=== PATIENT | female | born 1935 | race Caucasian/White ===

== ENCOUNTER 2016-06-26 10:23 | Emergency (ER) | payer MEDICARE ==
--- NOTE | 2016-06-26 13:08 | RAD ---
INDICATION: Leg weakness, CVA. COMPARISON: There are no prior studies available for comparison. TECHNIQUE: Contiguous axial sections of the brain were obtained from the skull base to the vertex without contrast. FINDINGS: The ventricles, cisterns and sulci are prominent consistent with atrophy. There is more focal severe atrophy of the cerebellum and brainstem. There are small areas of decreased attenuation present in the subcortical and periventricular white matter consistent with mild chronic small vessel ischemic changes. No other focal abnormality or mass effect is seen. There is no evidence for hemorrhage. No significant focal osseous abnormality is seen. The visualized portion of the paranasal sinuses and mastoid air cells appear clear. IMPRESSION: 1. NO EVIDENCE FOR GROSS ACUTE INFARCT, MASS EFFECT OR HEMORRHAGE. 2. 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
[2016-06-26 13:12] LABS: Hematocrit 37 % (35-47); Hemoglobin 12.6 g/dl (12.0-16.0); Mean Corpuscular HGB Conc 34 g/dl (31-36); Mean Corpuscular Hemoglobin 31 pg (27-31); Mean Corpuscular Volume 92 fL (80-97); Mean Platelet Volume 7 um3 (7.4-10.4); Red Blood Count 4.05 10^6/ul (4.0-5.4); Red Cell Distribution Width 13 % (10.5-15); White Blood Count 7.7 10^3/ul (3.5-10.8)
--- NOTE | 2016-06-26 13:20 | RAD ---
Indication: Legs feel heavy and weak today. Comparison: No relevant prior exams available on the [facility] PACS for comparison. Technique: Noncontrast CT thoracic spine. Multiplanar reformation. Report: Tortuous descending thoracic aorta with moderate calcific plaque. Mild subsegmental atelectasis at the partially visualized lungs. Negative for pleural effusions. Negative for thoracic vertebral body or posterior element fracture or suspicious focal osseous lesion at any level. Negative for spondylolisthesis at any level. Multilevel mild degenerative spondylosis with associated osteophytosis and mild reactive endplate change. No suggestion of acquired central canal or foraminal stenosis at any level. Negative for paravertebral hematoma. IMPRESSION: 1. No evidence for thoracic spine fracture or malalignment. 2. No CT evidence for acquired spinal stenosis of the thoracic spine.
[2016-06-26 13:32] LABS: Albumin 4.1 g/dL (3.2-5.2); BUN/Creatinine Ratio 13.8 (8-20); C Reactive Protein 20.4 mg/L (< 5.00); Calcium 9.2 mg/dL (8.6-10.3); EGFR African American 73.7 (>60); EGFR Non-African American 57.3 (>60); Globulin 3.2 g/dL (2-4); Total Bilirubin 0.5 mg/dL (0.2-1.0); Total Protein 7.3 g/dL (6.4-8.9)
--- NOTE | 2016-06-26 13:37 | RAD ---
INDICATION: Leg weakness COMPARISON: Lumbar spine March 31, 2014 TECHNIQUE: Noncontrast axial source images was performed from the thoracolumbar junction to the sacrum. Coronal and and sagittal reformatted images were generated. There is believed to be lumbarization of S1 and for the purposes of this examination the lowest full disc space will be labeled as S1-S2. FINDINGS: Vertebrae: There is no fracture or acute focal bony lesion. There is believed to be a transitional vertebrae with lumbarization at S1. There is spurring of the mid and upper lumbar spine. The superior endplate compression deformity of L2. There is prominent facet arthropathy at L5-S1 with a presumed healed L5 spondylolysis. Alignment: Grade 1 anterolisthesis L5-S1. Central Canal: There are no significant CT abnormalities of the central canal or foramina. MR imaging is a more sensitive method to evaluate the canal and foramina. Intervertebral disc spaces: Minor narrowing L5-S1 The heights of the remaining disc spaces are maintained. There is vacuum disc phenomena at L1-L2 and L2-L3 Soft tissues: The paravertebral soft tissues are normal. Other: None IMPRESSION: MULTILEVEL DEGENERATIVE CHANGES DESCRIBED. NO ACUTE BONY FINDINGS.
[2016-06-26 14:29] VITALS: BP 124/72
--- NOTE | 2016-06-26 18:37 | ED ---
Obie Frias Benjamin, scribed for Samm Wilson MD on 06/26/16 at 1233 . Lower Extremity - HPI Summary HPI Summary: 80yo female who c/o bilateral leg weakness since this morning. Pt states my legs feel like jelly, describing legs feeling weak and heavy from knee down. Pt denies any pain in legs, back, or hips. Pt denies any symptoms besides leg weakness. Pt is diabetic. 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 - History of Current Complaint Chief Complaint: EDExtremityLower Stated Complaint: WEAKNESS Time Seen by Provider: 06/26/16 12:13 Hx Obtained From: Patient, Family/Track Greaser Onset/Duration: Still Present - since this morning Severity Initially: Mild Severity Currently: Mild Pain Intensity: 0 Pain Scale Used: 0-10 Numeric Timing: Constant Associated Signs And Symptoms: Positive: Weakness - Allergies/Home Medications Allergies/Adverse Reactions: Allergies Allergy/AdvReac Type Severity Reaction Status Date / Time No Known Allergies Allergy Verified 03/31/14 15:17 PMH/Surg Hx/FS Hx/Imm Hx Endocrine/Hematology History: Reports: Hx Diabetes Denies: Hx Thyroid Disease Cardiovascular History: Reports: Hx Hypertension Respiratory History: Denies: Hx Asthma, Hx Chronic Obstructive Pulmonary Disease (COPD) GI History: Denies: Hx Ulcer Infectious Disease History: Denies: Hx Clostridium Difficile, Hx Hepatitis, Hx Human Immunodeficiency Virus (HIV), Hx of Known/Suspected MRSA, Hx Shingles, Hx Tuberculosis, Hx Known/ Suspected VRE, Hx Known/Suspected VRSA, History Other Infectious Disease, Traveled Outside the [place] in Last 30 Days - Family History Known Family History: Negative: Cardiac Disease, Hypertension - Social History Occupation: Disabled Lives: At [facility] [employer] Alcohol Use: Occasionally Substance Use Type: Reports: None Smoking Status (MU): Never Smoked Tobacco Review of Systems Constitutional: Negative Eyes: Negative ENT: Negative Cardiovascular: Negative Respiratory: Negative Gastrointestinal: Negative Genitourinary: Negative Musculoskeletal: Negative Positive: Rash Positive: Weakness - bilateral leg weakness Psychological: Normal All Other Systems Reviewed And Are Negative: Yes Physical Exam - Summary Physical Exam Summary: The patient is well-nourished in no acute distress and in no acute pain. The skin is warm and dry and skin color reflects adequate perfusion. HEENT: The head is normocephalic and atraumatic. The pupils are equal and reactive. EOMI. The conjunctivae are clear and without drainage. Nares are patent and without drainage. Mouth reveals moist mucous membranes and the throat is without erythema and exudate. The external ears are intact. The ear canals are patent and without drainage. The tympanic membranes are intact. Neck is supple with full range of motion and non-tender. There are no carotid bruits. There is no neck vein distension. Respiratory: Chest is non-tender. Lungs are clear to auscultation and breath sounds are symmetrical and equal. Cardiovascular: Hear is regular rate and rhythm. There is no murmur or rub auscultated. There is no peripheral edema and pulses are symmetrical and equal. Abdomen: The abdomen is soft and non-tender. There are normal bowel sounds heard in all four quadrants and there is no organomegaly palpated. Musculoskeletal: There is no back pain noted. Extremities are non-tender with full range of motion. There is good capillary refill. There is no peripheral edema or calf tenderness elicited. No reproducible back pain. Neurological: Patient is alert and oriented to person, place and time. The patient has symmetrical motor strength in all four extremities. Cranial nerves are grossly intact. Deep tendon reflexes are symmetrical and equal in all four extremities. Sensation intact. No motor weakness noted. Heel to demarco intact. No drift in legs. Psychiatric: The patient has an appropriate affect and does not exhibit any anxiety or depression. Triage Information Reviewed: Yes Vital Signs On Initial Exam: Initial Vitals Temp Pulse Resp BP Pulse Ox 98.2 F 107 18 164/90 98 06/26/16 10:29 06/26/16 10:29 06/26/16 10:29 06/26/16 10:29 06/26/16 10:29 Vital Signs Reviewed: Yes - [place] Coma Scale Coma Scale Total: 15 Diagnostics - Vital Signs Vital Signs Temp Pulse Resp BP Pulse Ox 06/26/16 10:29 98.2 F 107 18 164/90 98 - Laboratory Lab Results: Lab Results 06/26/16 06/26/16 Range/Units 13:01 13:01 WBC 7.7 (3.5-10.8) 10^3/ul RBC 4.05 (4.0-5.4) 10^6/ul Hgb 12.6 (12.0-16.0) g/dl Hct 37 (35-47) % MCV 92 (80-97) fL MCH 31 (27-31) pg MCHC 34 (31-36) g/dl RDW 13 (10.5-15) % Plt Count 215 (150-450) 10^3/ul MPV 7 L (7.4-10.4) um3 Neut % (Auto) 62.6 (38-83) % Lymph % (Auto) 27.6 (25-47) % Swisher % (Auto) 7.5 (1-9) % Eos % (Auto) 1.7 (0-6) % Baso % (Auto) 0.6 (0-2) % Absolute Neuts (auto) 4.8 (1.5-7.7) 10^3/ul Absolute Lymphs (auto) 2.1 (1.0-4.8) 10^3/ul Absolute Monos (auto) 0.6 (0-0.8) 10^3/ul Absolute Eos (auto) 0.1 (0-0.6) 10^3/ul Absolute Basos (auto) 0 (0-0.2) 10^3/ul Absolute Nucleated RBC 0 10^3/ul Nucleated RBC % 0 Sodium 137 (133-145) mmol/L Potassium 4.0 (3.5-5.0) mmol/L Chloride 100 L (101-111) mmol/L Carbon Dioxide 28 (22-32) mmol/L Anion Gap 9 (2-11) mmol/L BUN 13 (6-24) mg/dL Creatinine 0.94 (0.51-0.95) mg/dL Est GFR ( Amer) 73.7 (>60) Est GFR (Non-Af Amer) 57.3 (>60) BUN/Creatinine Ratio 13.8 (8-20) Glucose 159 H (70-100) mg/dL Calcium 9.2 (8.6-10.3) mg/dL Total Bilirubin 0.50 (0.2-1.0) mg/dL AST 15 (13-39) U/L ALT 15 (7-52) U/L Alkaline Phosphatase 60 (34-104) U/L C-Reactive Protein 20.40 H (< 5.00) mg/L Total Protein 7.3 (6.4-8.9) g/dL Albumin 4.1 (3.2-5.2) g/dL Globulin 3.2 (2-4) g/dL Albumin/Globulin Ratio 1.3 (1-3) Result Diagrams: 06/26/16 13:01 06/26/16 13:01 Lab Statement: Any lab studies that have been ordered have been reviewed, and results considered in the medical decision making process. - CT CT T spine CT Interpretation: No Acute Changes CT Interpretation Completed By: Radiologist CT L spine CT Interpretation: No Acute Changes CT Interpretation Completed By: Radiologist CT Brain CT Interpretation: No Acute Changes - IMPRESSION: 1. NO EVIDENCE FOR GROSS ACUTE INFARCT, MASS EFFECT OR HEMORRHAGE. 2. 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 CT Interpretation Completed By: Radiologist Lower Extremity Course/Dx - Diagnoses Differential Diagnosis/HQI/PQRI: Positive: Other - degenerative disc diease, cva , herniated nucleosis propulosis, neuropathy, diabetes mellitus Provider Diagnoses: leg weakness, resolved Discharge - Discharge Plan Condition: Stable Disposition: HOME Patient Education Materials: Weakness (ED) Referrals: Ronaldo Allen MD [Primary Care Provider] - The documentation as recorded by the Obie frankel Benjamin accurately reflects the service I personally performed and the decisions made by , Samm Wilson MD.
== END 2016-06-26 14:28 | disposition home or self-care (01) ==
LOC: ED 10:23
DX: R53.1 Weakness (principal); R21 Rash and other nonspecific skin eruption
CPT/HCPCS: 36415; 70450; 72128; 72131; 80053; 85025; 86140; 99282

== ENCOUNTER 2017-06-22 13:26 | Emergency (ER) | payer MEDICARE, MEDICAID ==
[2017-06-22 13:46] VITALS: BP 121/76
--- NOTE | 2017-06-22 14:52 | ED ---
Throat Pain/Nasal Congestion - HPI Summary HPI Summary: 81 yo WF c/o left eye redness and itchiness x 2 days, sister in law is here with her. Denies f/c or yellow d/c - History of Current Complaint Chief Complaint: UCEye Time Seen by Provider: 06/22/17 13:46 Hx Obtained From: Patient Onset/Duration: Sudden Onset Severity: Moderate Associated Signs And Symptoms: Positive: Negative. Negative: Sinus Discomfort, Nasal Discharge Related History: Seasonal Allergies - Epiglottits Risk Factors Epiglottis Risk Factors: Negative - Allergies/Home Medications Allergies/Adverse Reactions: Allergies Allergy/AdvReac Type Severity Reaction Status Date / Time No Known Allergies Allergy Verified 06/22/17 13:40 PMH/Surg Hx/FS Hx/Imm Hx Previously Healthy: Yes Endocrine/Hematology History: Reports: Hx Diabetes Denies: Hx Thyroid Disease Cardiovascular History: Reports: Hx Hypertension Respiratory History: Denies: Hx Asthma, Hx Chronic Obstructive Pulmonary Disease (COPD) GI History: Denies: Hx Ulcer Infectious Disease History: No Infectious Disease History: Denies: Hx Clostridium Difficile, Hx Hepatitis, Hx Human Immunodeficiency Virus (HIV), Hx of Known/Suspected MRSA, Hx Shingles, Hx Tuberculosis, Hx Known/ Suspected VRE, Hx Known/Suspected VRSA, History Other Infectious Disease, Traveled Outside the [place] in Last 30 Days - Family History Known Family History: Negative: Cardiac Disease, Hypertension - Social History Alcohol Use: None Substance Use Type: Reports: None Smoking Status (MU): Never Smoked Tobacco Review of Systems Constitutional: Negative Positive: Erythema, Other - left red eye Cardiovascular: Negative Respiratory: Negative Gastrointestinal: Negative Genitourinary: Negative Musculoskeletal: Negative Skin: Negative Neurological: Negative Psychological: Normal All Other Systems Reviewed And Are Negative: Yes Physical Exam Triage Information Reviewed: Yes Vital Signs On Initial Exam: Initial Vitals Temp Pulse Resp BP Pulse Ox 36.9 C 117 18 121/76 96 06/22/17 13:40 06/22/17 13:40 06/22/17 13:40 06/22/17 13:40 06/22/17 13:40 Vital Signs Reviewed: Yes Appearance: Positive: Well-Appearing Skin: Positive: Warm Eyes: Positive: Normal, Conjunctiva Inflammed - -allergic conjunctivitis WITH moderate to severe pruritis, Discharge - CLEAR Neck: Positive: Supple Respiratory/Lung Sounds: Positive: Clear to Auscultation Cardiovascular: Positive: Normal Musculoskeletal: Positive: Normal Neurological: Positive: Normal Diagnostics - Vital Signs Vital Signs Temp Pulse Resp BP Pulse Ox 06/22/17 13:40 36.9 C 117 18 121/76 96 - Laboratory Lab Statement: Any lab studies that have been ordered have been reviewed, and results considered in the medical decision making process. EENT Course/Dx - Diagnoses Provider Diagnoses: Allergic conjunctivitis Discharge - Sign-Out/Discharge Documenting (check all that apply): Discharge/Admit/Transfer - Discharge Plan Condition: Stable Disposition: HOME Prescriptions: Olopatadine 0.1% OPHTH (NF) [Patanol 0.1% OPHTH (NF)] 0.1 % OP BID 30 Days #1 btl Patient Education Materials: Conjunctivitis (ED), Allergies (ED) Referrals: Ronaldo Allen MD [Primary Care Provider] - - Billing Disposition and Condition Condition: STABLE Disposition: HOME
== END 2017-06-22 14:51 | disposition home or self-care (01) ==
LOC: UCEAST 13:26
DX: H10.12 Acute atopic conjunctivitis, left eye (principal); E11.9 Type 2 diabetes mellitus without complications; I10 Essential (primary) hypertension
CPT/HCPCS: 99212; G0463